=== PATIENT | female | born 1955 | race Caucasian/White ===

== ENCOUNTER 2018-01-03 07:48 | Day surgery (SDC) | payer BC ==
[2018-01-03] MEDS ORDERED: MIDAZOLAM 1 MG/ML 2 ML INJ ×3 (09:16→09:17)
[2018-01-03] MEDS ORDERED: FENTAnyl 50 MCG/ML VIAL (09:17)
== END 2018-01-03 09:39 | disposition home or self-care (01) ==
LOC: GIL 07:48
DX: Z12.11 Encounter for screening for malignant neoplasm of colon (principal); K64.8 Other hemorrhoids; K57.90 Diverticulosis of intestine, part unspecified, without perforation or abscess without bleeding
CPT/HCPCS: 45378